=== PATIENT | female | born 1985 | race Caucasian/White ===

== ENCOUNTER 2016-09-05 20:25 | Emergency (ER) | payer OTHER ==
[2016-09-05] MEDS ORDERED: IBUPROFEN 600 MG TABLET ONE (21:51)
== END 2016-09-05 22:19 | disposition home or self-care (01) ==
LOC: ED 20:25
DX: S86.011A Strain of right Achilles tendon, initial encounter (principal); X58.XXXA Exposure to other specified factors, initial encounter
CPT/HCPCS: 99283 ×2; 29515; A9270